=== PATIENT | male | born 1965 | race Asian ===

== ENCOUNTER 2018-10-03 04:08 | Emergency (ER) | payer OTHER ==
[~2018-10-03] VITALS: Ht 165.1 cm; Wt 65.9 kg
[2018-10-03] MEDS ORDERED: CYCLOBENZAPRINE HCL 10 MG TABLET PO ONE (06:15)
[2018-10-03] MEDS ORDERED: KETOROLAC TROMETHAMINE 60 MG/2 ML VIAL IM ONE (06:15)
[2018-10-03 07:58] VITALS: BP 129/82
== END 2018-10-03 08:01 | disposition home or self-care (01) ==
LOC: EMS 04:10
DX: S46.912A Strain of unspecified muscle, fascia and tendon at shoulder and upper arm level, left arm, initial encounter (principal); X50.9XXA Other and unspecified overexertion or strenuous movements or postures, initial encounter; Y93.89 Activity, other specified; Y92.89 Other specified places as the place of occurrence of the external cause; Y99.8 Other external cause status
CPT/HCPCS: 72125; 96372; 99284; J1885